=== PATIENT | female | born 1990 | race Caucasian/White ===

== ENCOUNTER 2018-10-15 15:21 | Outpatient (CLI) | payer OTHER ==
--- NOTE | 2018-10-15 17:07 | RAD ---
EXAM: HYSTEROSALPINGOGRAM 10/15/18 HISTORY: Difficulty getting x2 years. COMPARISON: None. FINDINGS: Retrograde opacification of the endometrium was performed. There is appropriate opacification of the endometrium and appropriate opacification of both fallopian tubes. There is free spillage in the left and right hemipelvis suggesting bilateral patent fallopian tubes. Balloon was deflated and the lower uterine segment is unremarkable. IMPRESSION: Patent left and right fallopian tubes. POS: OFF
== END 2018-10-15 15:22 | disposition home or self-care (01) ==
LOC: RAD 15:21
PROVIDERS: ATTEND Student in an Organized Health Care Education/Training Program
DX: N97.9 Female infertility, unspecified (principal)
CPT/HCPCS: 58340; 74740

== ENCOUNTER 2020-08-04 00:15 | Emergency (ER) | payer OTHER ==
[2020-08-04] MEDS ORDERED: Ondansetron PF 4 MG/2 ML Vial ONE (00:35)
[2020-08-04] MEDS ORDERED: Acetaminophen 500 MG TAB ONE (00:49)
== END 2020-08-04 01:52 | disposition home or self-care (01) ==
LOC: ERS 00:15
DX: R19.7 Diarrhea, unspecified (principal); R11.10 Vomiting, unspecified
CPT/HCPCS: 96374; J2405

== ENCOUNTER 2022-02-19 15:54 | Outpatient (CLI) | payer BC ==
[2022-02-19 16:46] LABS: Hemoglobin 12.7 g/dL (12.0-15.5); Mean Corpuscular HGB CONC 34.7 g/dL (32.0-36.0); Mean Corpuscular Hemoglobin 29.7 pg (27.0-33.0); Mean Corpuscular Volume 85.7 fl (81.6-98.3); Mean Platelet Volume 8.7 fl (7.4-10.4); Platelet Count 261 10x3/uL (150-450); RBC Distribution Width 11.9 % (11.5-14.5); Red Blood Cell (RBC) Count 4.27 10x6/uL (3.90-5.03); White Blood Cell (WBC) Count 8.1 10x3/uL (3.5-10.5)
[2022-02-19 17:10] LABS: Anion Gap 14 mmol/L (10-20); BUN (Urea Nitrogen) 17 mg/dL (7.0-18.7); Calc. Creatinine Clearance 0 mL/min (70-130); Calcium 9.8 mg/dL (7.8-10.44); Carbon Dioxide 25 mmol/L (22-29); Chloride 100 mmol/L (98-107); Estimated GFR 104; Glucose 96 mg/dL (70-105); Potassium 3.8 mmol/L (3.5-5.1); Sodium 135 mmol/L (136-145)
== END 2022-02-19 15:55 | disposition home or self-care (01) ==
LOC: LABBT 15:54
PROVIDERS: ATTEND Psychiatry & Neurology Child & Adolescent Psychiatry
DX: Z01.818 Encounter for other preprocedural examination (principal); M54.16 Radiculopathy, lumbar region; Z20.822 Contact with and (suspected) exposure to COVID-19
CPT/HCPCS: 80048; 85027; 87811; 93005; 93010

== ENCOUNTER 2022-02-24 07:35 | Day surgery (SDC) | payer BC ==
[2022-02-21 09:30] VITALS: BMI 21.2
[2022-02-24] MEDS ORDERED: Sodium Chloride 0.9% 100 ML ONE (07:51)
[2022-02-24] MEDS ORDERED: Lidocaine 1% MPF 2 ML VIAL ONE (07:51)
[2022-02-24] MEDS ORDERED: CEFAZOLIN 2 GM VIAL ONE (07:51)
[2022-02-24] MEDS ORDERED: Fentanyl 100 MCG/2 ML VIAL ONE ×3 (08:39→11:31)
[2022-02-24] MEDS ORDERED: fentaNYL Citrate/PF 100 MCG/2 ML SYRINGE ONE (09:43)
[2022-02-24] MEDS ORDERED: Glycopyrrolate 0.2 MG/ML 5 ML SYRINGE ONE (10:16)
[2022-02-24] MEDS ORDERED: Ketorolac Tromethamine 30 MG/ML VIAL ONE (10:16)
[2022-02-24] MEDS ORDERED: PHENYLEPHRINE-NS 100 MCG/ML 10 ML SYRINGE ONE (10:16)
[2022-02-24] MEDS ORDERED: Ondansetron PF 4 MG/2 ML Vial ONE ×2 (10:16→11:41)
[2022-02-24] MEDS ORDERED: Dexamethasone 20 MG/5 ML VIAL ONE (10:16)
[2022-02-24] MEDS ORDERED: NEOSTIGMINE 3 MG/3 ML SYR 3 MG/3 ML SYRINGE ONE (10:16)
[2022-02-24] MEDS ORDERED: Rocuronium Bromide 10 MG/ML (10ML VIAL) ONE (10:16)
[2022-02-24] MEDS ORDERED: PROPOFOL 200 MG/20 ML VIAL ONE (10:16)
[2022-02-24] MEDS ORDERED: Promethazine HCl 25 MG/ML VIAL ONE (11:49)
[2022-02-24] MEDS ORDERED: Acetaminophen/Codeine 30-300mg Tablet ONE ×2 (14:55→16:09)
== END 2022-02-24 16:48 | disposition home or self-care (01) ==
LOC: SDC 07:35
PROVIDERS: ATTEND Neurological Surgery
PROC: 01NB0ZZ Release Lumbar Nerve, Open Approach (ICD-10-PCS; principal; 2022-02-24)
PROC: 0SB20ZZ Excision of Lumbar Vertebral Disc, Open Approach (ICD-10-PCS; principal; 2022-02-24)
DX: M51.16 Intervertebral disc disorders with radiculopathy, lumbar region (principal); Z79.899 Other long term (current) drug therapy
CPT/HCPCS: 76000; C1713; J0690; J2405; J2550; J3010; J3370; J3490